=== PATIENT | female | born 1960 ===

== ENCOUNTER 2023-08-13 11:30 | Outpatient (RCR) | payer OTHER, MEDICARE, SELFPAY ==
--- NOTE | 2023-08-13 14:03 | PC.ADMIT ---
Patient is a 63 year old female who was referred to [facility] by her therapist d/t depression and anxiety sxs. Patient reportedly was admitted to [facility] inpatient unit from 07/16-07/24/23 for depression with SI to jump into traffic. Reportedly had SI for the past 2 months. Prior to hospitalization she reports drinking 6-8 20 oz beers daily and stated she was drinking, around the clock . Last drink of ETOH was on 07/15/23. Patient reports some triggers are not working and several losses of people she knew over the past year. Patient is alert and oriented x4. Calm and cooperative. She presented with depressed mood and anxious affect. She denied SI, HI. She was given a copy of her safety plan/relapse and I reviewed this plan with her. She reports she is interested in a recovery agent thus we called Nayan from [facility] in my office and Liv left him a message with her information to call her back as she is interested in a recovery agent. 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 She reports supports including her land lord and a friend along with her therapist. Medications reconciled with patient and patient's pharmacy. Patient reports taking medications as prescribed. Educated patient on medication instructions per pharmacy to stop Lorazepam, Zolpidem which she has stopped however she was not aware that Vistaril and Hydroxyzine were the same medication as Hydroxyzine is to be stopped as well. Medication education provided.
[2023-08-13 14:04] VITALS: BP 90/60; PULSE 92; TEMP 36.9
--- NOTE | 2023-08-13 15:00 | HO.PHP ---
A voice message was left for Liv in order to communicate information regarding her insurance coverage.
--- NOTE | 2023-08-14 09:00 | HO.PHP ---
Liv called the [facility] to report that she would be unable to attend treatment today due to concerns regarding her transportation. She verbally contracted for safety over the phone.
--- NOTE | 2023-08-14 15:15 | HO.PHP ---
A voicemail was left for Liv to relay information regarding her insurance coverage.
--- NOTE | 2023-08-14 15:40 | PHP/IOPCOSI ---
[facility] treatment plan was reviewed by the [facility] clinical staff. Their case has been opened and reviewed.
--- NOTE | 2023-08-15 10:47 | HO.PHP ---
Spoke with Joanne via phone who noted that due to limitations of her insurance and co-pay costs that she would like to discharge from the program immediately. She declined to receive information regarding other community programs. She verbally denied experiencing suicidal ideation and noted that she has the information for local crisis resources in case of future need.
== END 2023-08-13 23:59 | disposition home or self-care (01) ==
LOC: HO.PHPA 11:30
PROVIDERS: Visit Provider Psychiatry & Neurology Psychiatry
DX: F33.1 Major depressive disorder, recurrent, moderate (principal); F41.1 Generalized anxiety disorder; F43.10 Post-traumatic stress disorder, unspecified; F10.20 Alcohol dependence, uncomplicated
CPT/HCPCS: 90791; 90853